=== PATIENT | female | born 1980 | race Two or more races ===

== ENCOUNTER 2018-11-03 20:33 | Emergency (ER) | payer OTHER, BC ==
[2018-11-03 21:23] VITALS: BP 112/70
[2018-11-03] MEDS ORDERED: CYCLOBENZAPRINE HCL 10 MG TABLET PO ONE (22:16)
[2018-11-03] MEDS ORDERED: NAPROXEN 250 MG TABLET PO ONE (22:16)
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
== END 2018-11-03 22:30 | disposition home or self-care (01) ==
LOC: ER 20:33
DX: M54.2 Cervicalgia (principal); M25.512 Pain in left shoulder; M54.6 Pain in thoracic spine; V89.2XXA Person injured in unspecified motor-vehicle accident, traffic, initial encounter
CPT/HCPCS: 99283